=== PATIENT | female | born 1955 | race Caucasian/White ===

== ENCOUNTER 2016-12-08 07:22 | Day surgery (SDC) | payer BC ==
--- NOTE | ~2016-12-08 | OP ---
Record Of Operation [facility] [address] [place]. [address] NAME: ROBERTA SANCHEZ : 57 STATUS : REG [facility] [place] PAT#: [id number] AGE: 61 ADM/REG DATE : 12/08/16 MR#: [id number] REPORT SERV DATE: 12/08/16 DICTATED BY: KOBI SAGASTUME JR. 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 There is some question about the size which initially felt to be near 4 cm with MRI showing a similar 4.5 cm area of involvement, although, mammogram showed a smaller area. Nonetheless, she has had what I would consider complete clinical response and that the lesion was no longer palpable. Ultrasound localization was performed in the [facility] prior to surgery. Her hemoglobin has remained low, but adequate for this procedure. Platelet count is adequate. PREOPERATIVE DIAGNOSIS: Carcinoma, right breast. POSTOPERATIVE DIAGNOSIS: Carcinoma, right breast. SURGEON: Kobi Sagastume M.D. SURGERY PERFORMED: [place] node localization, followed by right breast segmentectomy, and sentinel node resection. PROCEDURE IN DETAIL: The patient previously underwent ultrasound localization. She had an injection in the nuclear medicine facility. The patient was taken to the operating room, and under general anesthesia, she was prepped and draped in supine position in the usual sterile fashion. A curvilinear incision was made directly over the previously localized site. Vertical dissection was carried down through the fatty tissue. A very large segmentectomy measuring 4.5 cm across was performed, keeping out biopsy indurated site now palpable center most within the specimen. This sphere of tissue was removed and oriented for pathology. Initial sectioning showed the biopsy cavity site and this appeared to have some induration associated with it more on the superior border. Therefore, an additional disk of tissue from the mid portion at the 12 o'clock position was taken measuring 2.5 x 2.5 x 1.5 cm. It was oriented for pathology. The wound was irrigated and hemostasis was obtained. The wound was closed with two layers of Monocryl. Attention was turned to the right axilla. With direction with the Gamma probe, a small curvilinear incision was made and vertical dissection was carried down to a singly active site. A very small active node was removed and some associated lymphatic area of induration, but the lymph node was active at a low-level, and sent as sentinel node. The additional lymphatic tissue did not have a node within it that I could feel, but was sent as a separate specimen. Surgical log book records the counts and background count of the procedure. The wound was irrigated and hemostasis was obtained. The wound was closed with Record Of Operation [address] [place]. [address] NAME: ROBERTA SANCHEZ : 57 STATUS : REG [facility] [place] PAT#: [id number] AGE: 61 ADM/REG DATE : 12/08/16 MR#: [id number] REPORT SERV DATE: 12/08/16 DICTATED BY: KOBI SAGASTUME JR. DATE: 12/08/16 REPORT STATUS : Draft TRANSCRIBED BY: SIDDHARTH DATE: 12/08/16 two layers of Monocryl. The patient tolerated the procedure well without complications. ESTIMATED BLOOD LOSS: 10 mL. SPONGE COUNT: Correct. MR/MODL Kobi Sagastume Jr., M.D. / [id number] CC: Dennis Gipson Jr., MD Mark S Womack IV, M.D. [facility]
[~2016-12-08 07:22] MED LIST: CLARIT10 PO; IVVIBRA PO; MAXIMUM D3 PO; MOBIC15 MG PO; POTASSIUM; PRAVACHOL40 MG PO; SINGULAIR1 PO; ZANTAC150 MG PO
[2016-12-08 08:38] LABS: BASOPHILS 0.7 %; BASOPHILS ABSOLUTE 0.03 10/3/uL (0.0-0.16); EOSINOPHILS 1.7 %; EOSINOPHILS ABSOLUTE 0.07 10/3/uL (0.0-0.53); HEMATOCRIT 26.4 % (36.0-48.0); HEMOGLOBIN 8.8 g/dL (12.0-16.0); IMMATURE GRANULOCYTES 0.5 %; IMMATURE GRANULOCYTES ABSOLUTE 0.02 10/3/uL (0.0-0.11); LYMPHOCYTES 36.4 %; LYMPHOCYTES ABSOLUTE 1.47 10/3/uL (0.67-4.30); MANUAL DIFF NO %; MEAN CORPUS HGB CONC 33.3 g/dL (32.0-36.0); MEAN CORPUSCULAR HEMOGLOB 38.4 pg (26.0-34.0); MEAN CORPUSCULAR VOLUME 115.3 fL (80-100); MONOCYTES 7.4 %; NEUTROPHILS 53.3 %; NEUTROPHILS ABSOLUTE 2.15 10/3/uL (2.02-8.40); PLATELET COUNT 338 10/3/uL (150-400); RBC DISTRIBUTION WIDTH 17.8 % (12.0-16.0); RED CELL COUNT 2.29 10/6/uL (4.0-5.6)
[2016-12-08 08:47] LABS: BUN (BLOOD UREA NITROGEN) 11 MG/DL (6-23); CHLORIDE, SERUM 110 MMOL/L (96-112); CO2 (CARBON DIOXIDE) 28 MMOL/L (24-34); CREATININE 0.66 MG/DL (0.55-1.02); GFR AFRICAN AMERICAN 111 ML/MIN (>=60); GFR NON AFRICAN AMERICAN 96 ML/MIN (>=60); GLUCOSE, SERUM 84 MG/DL (60-99); POTASSIUM, SERUM 3.7 MMOL/L (3.5-5.3); SODIUM, SERUM 145 MMOL/L (135-148)
[2016-12-08 08:49] LABS: CALCIUM, SERUM 7.7 MG/DL (8.5-10.4)
[2016-12-08 08:58] LABS: ANISOCYTOSIS 1+ (5-10/OIF) (0-5/OIF); PLATELET ESTIMATE ADQ (ADEQUATE)
[2016-12-08 08:59] LABS: HELMET CELLS OCC (0-2/OIF); POIKILOCYTOSIS 1+ (5-10/OIF) (0-5/OIF); POLYCHROMASIA 1+ (2-5/OIF) (0-1/OIF)
[2017-04-22] MEDS ORDERED: VITE PO (21:03)
[2017-04-22] MEDS ORDERED: SINGULAIR1 PO (21:04)
[2017-04-22] MEDS ORDERED: ARIMIDEX1 PO (21:04)
[2017-04-22] MEDS ORDERED: MAXIMUM D3 PO (21:04)
[2017-04-22] MEDS ORDERED: TRENTAL400 PO (21:05)
[2017-04-22] MEDS ORDERED: HERCEPTIN440 MG IV (21:06)
[2017-04-26] MEDS ORDERED: LIPITOR10 PO (16:33)
[2017-04-26] MEDS ORDERED: ASAB PO (16:33)
[2017-04-26] MEDS ORDERED: LOP25 PO (16:34)
[2017-04-26] MEDS ORDERED: NITROSTAT0.4 MG SL (16:35)
[2017-05-05] MEDS ORDERED: AT25 PO (11:25)
[2017-05-05] MEDS ORDERED: TESSALON200 MG PO (11:26)
[2017-05-05] MEDS ORDERED: CELEXA20 PO (11:26)
== END 2016-12-08 13:50 | disposition home or self-care (01) ==
LOC: NM 07:22
PROVIDERS: Surgery Surgical Oncology
PROC: 07B50ZZ Excision of Right Axillary Lymphatic, Open Approach (ICD-10-PCS; 2016-12-08)
PROC: 0HTT0ZZ Resection of Right Breast, Open Approach (ICD-10-PCS; principal; 2016-12-08 09:30)
DX: C50.411 Malignant neoplasm of upper-outer quadrant of right female breast (principal); C77.3 Secondary and unspecified malignant neoplasm of axilla and upper limb lymph nodes; I10 Essential (primary) hypertension; J40 Bronchitis, not specified as acute or chronic; D64.9 Anemia, unspecified; M19.90 Unspecified osteoarthritis, unspecified site; K21.9 Gastro-esophageal reflux disease without esophagitis; Z88.1 Allergy status to other antibiotic agents; Z87.891 Personal history of nicotine dependence; Z86.010 Personal history of colon polyps; Z92.21 Personal history of antineoplastic chemotherapy; Z96.1 Presence of intraocular lens; Z98.41 Cataract extraction status, right eye; Z98.42 Cataract extraction status, left eye; Z90.49 Acquired absence of other specified parts of digestive tract; Z79.899 Other long term (current) drug therapy; Z98.890 Other specified postprocedural states
CPT/HCPCS: 71020-PO; 78195; 80048; 85025; 88305; 88307; 88342; 88360; 88367; 93005; A9270-GY; A9541; J0690; J1885; J2250; J2270; J2405; J3010